=== PATIENT | female | born 1990 | race Caucasian/White ===

== ENCOUNTER → 2017-07-31 01:30 | Emergency (ER) | payer MEDICAID ==
[2017-07-31 03:10] LABS: Hematocrit 34 % (35-47); Hemoglobin 11.5 g/dl (12.0-16.0); Mean Corpuscular HGB Conc 34 g/dl (31-36); Mean Corpuscular Hemoglobin 28 pg (27-31); Mean Corpuscular Volume 84 fL (80-97); Mean Platelet Volume 8 um3 (7.4-10.4); Red Blood Count 4.06 10^6/ul (4.0-5.4); Red Cell Distribution Width 13 % (10.5-15); White Blood Count 15.5 10^3/ul (3.5-10.8)
[2017-07-31 03:27] LABS: ALT 8 U/L (7-52); AST 13 U/L (13-39); Albumin 4.1 g/dL (3.2-5.2); Alkaline Phosphatase 40 U/L (34-104); Anion Gap 7 mmol/L (2-11); BUN/Creatinine Ratio 16.7 (8-20); Blood Urea Nitrogen 8 mg/dL (6-24); C Reactive Protein < 1.00 mg/L (< 5.00); CO2 Carbon Dioxide 23 mmol/L (22-32); Calcium 8.9 mg/dL (8.6-10.3); Chloride 104 mmol/L (101-111); EGFR African American 201.1 (>60); EGFR Non-African American 156.3 (>60); Globulin 2.3 g/dL (2-4); Glucose 93 mg/dL (70-100); Potassium 3.6 mmol/L (3.5-5.0); Sodium 134 mmol/L (133-145); Total Protein 6.4 g/dL (6.4-8.9)
[2017-07-31 03:46] LABS: TSH (Thyroid Stimulating Horm) 1.43 mcIU/mL (0.34-5.60)
[2017-07-31] MEDS: NS 0.9% 1000 ML* 2,000 ML IV ONE ×2 (04:22→04:24)
[2017-07-31 06:05] LABS: Urine Bacteria Absent (Absent); Urine Bilirubin Negative (Negative); Urine Glucose Negative (Negative); Urine Nitrite Negative (Negative)
--- NOTE | 2017-07-31 07:49 | ED ---
Bernardo Aponte Abhishek, scribed for Johnathan Thurston MD on 07/31/17 at 0447 . Complex/Multi-Sys Presentation - HPI Summary HPI Summary: This patient is a 27 year old F presenting to [facility] with a c/o of vaginal bleeding since 24 of July and syncope since onset at 2245 at work. The vaginal bleeding is described as constant and worse since yesterday. The patient rates the pain 0/10 in severity. Symptoms aggravated by nothing. Symptoms alleviated by nothing. Patient reports chills since a couple days, chest congestion, cough productive (green), and diarrhea. Patient denies pain, and burning urination, abd cramping, and rashes. - History Of Current Complaint Chief Complaint: EDVaginalBleeding Time Seen by Provider: 07/31/17 03:30 Hx Obtained From: Patient Onset/Duration: Sudden Onset - Syncope at 2245, Still Present - Vaginal bleeding since July 24, Worse Since - Yesterday Timing: Constant - (Vaginal Bleeding) Severity Currently: None Aggravating Factor(s): nothing Alleviating Factor(s): nothing Associated Signs And Symptoms: Positive: Dizziness, Syncope, Cough - productive (green), Diarrhea, Other - Positive chest congestion, and chills. Negative pain , "burning" urination, abd cramping, and rashes. - Allergies/Home Medications Allergies/Adverse Reactions: Allergies Allergy/AdvReac Type Severity Reaction Status Date / Time No Known Allergies Allergy Verified 07/31/17 02:33 PMH/Surg Hx/FS Hx/Imm Hx Cardiovascular History: Denies: Hx Coronary Artery Disease Sensory History: Denies: Hx Deafness Opthamlomology History: Denies: Hx Legally Blind Infectious Disease History: No Infectious Disease History: Denies: Traveled Outside the [place] in Last 30 Days - Family History Known Family History: Negative: Seizure Disorder - Social History Alcohol Use: Occasionally Substance Use Type: Reports: None Smoking Status (MU): Light Every Day Tobacco Smoker Review of Systems Positive: Chills - couple days, Other - Negative generalized pain Eyes: Negative Positive: Cough - producitve (green), Other - chest congestion Positive: Diarrhea. Negative: Abdominal Pain Positive: other - Positive Vaginal bleedig. Negative burning urination Positive: Other Negative: Rash Positive: Syncope - 5 at work All Other Systems Reviewed And Are Negative: Yes Physical Exam - Summary Physical Exam Summary: General: mildly ill-appearing, no pain distress Skin: warm, color reflects adequate perfusion, dry Head: normal Eyes: EOMI, PATSY ENT: TM normal, posterior pharynx is benign, normal Neck: supple, nontender Respiratory:rhonchi, breath sounds present Cardiovascular: RRR Abdomen: soft, nontender Bowel: present Musculoskeletal: normal, strength/ROM intact Neurological: normal, sensory/motor intact, A&O x3 Psychological: affect/mood appropriate Triage Information Reviewed: Yes Vital Signs On Initial Exam: Initial Vitals Temp Pulse Resp BP Pulse Ox 98.5 F 98 14 114/79 99 07/31/17 01:32 07/31/17 01:32 07/31/17 01:32 07/31/17 01:32 07/31/17 01:32 Vital Signs Reviewed: Yes Diagnostics - Vital Signs Vital Signs Temp Pulse Resp BP Pulse Ox 07/31/17 03:30 90 114/66 97 07/31/17 03:00 89 125/79 98 07/31/17 02:33 85 98 07/31/17 02:31 114/70 07/31/17 01:32 98.5 F 98 14 114/79 99 - Laboratory Lab Results: Lab Results 07/31/17 07/31/17 07/31/17 Range/Units 02:55 02:55 02:55 WBC (3.5-10.8) 10^3/ul RBC (4.0-5.4) 10^6/ul Hgb (12.0-16.0) g/dl Hct (35-47) % MCV (80-97) fL MCH (27-31) pg MCHC (31-36) g/dl RDW (10.5-15) % Plt Count (150-450) 10^3/ul MPV (7.4-10.4) um3 Neut % (Auto) (38-83) % Lymph % (Auto) (25-47) % [place] % (Auto) (1-9) % Eos % (Auto) (0-6) % Baso % (Auto) (0-2) % Absolute Neuts (auto) (1.5-7.7) 10^3/ul Absolute Lymphs (auto) (1.0-4.8) 10^3/ul Absolute Monos (auto) (0-0.8) 10^3/ul Absolute Eos (auto) (0-0.6) 10^3/ul Absolute Basos (auto) (0-0.2) 10^3/ul Absolute Nucleated RBC 10^3/ul Nucleated RBC % INR (Anticoag Therapy) 1.11 (0.89-1.11) APTT 29.8 (26.0-36.3) seconds Sodium 134 (133-145) mmol/L Potassium 3.6 (3.5-5.0) mmol/L Chloride 104 (101-111) mmol/L Carbon Dioxide 23 (22-32) mmol/L Anion Gap 7 (2-11) mmol/L BUN 8 (6-24) mg/dL Creatinine 0.48 L (0.51-0.95) mg/dL Est GFR ( Amer) 201.1 (>60) Est GFR (Non-Af Amer) 156.3 (>60) BUN/Creatinine Ratio 16.7 (8-20) Glucose 93 (70-100) mg/dL Lactic Acid (0.5-2.0) mmol/L Calcium 8.9 (8.6-10.3) mg/dL Total Bilirubin 0.50 (0.2-1.0) mg/dL AST 13 (13-39) U/L ALT 8 (7-52) U/L Alkaline Phosphatase 40 (34-104) U/L C-Reactive Protein < 1.00 (< 5.00) mg/L Total Protein 6.4 (6.4-8.9) g/dL Albumin 4.1 (3.2-5.2) g/dL Globulin 2.3 (2-4) g/dL Albumin/Globulin Ratio 1.8 (1-3) TSH 1.43 (0.34-5.60) mcIU/mL Beta HCG, Quant 85094.00 mIU/mL Blood Type A Positive 07/31/17 07/31/17 Range/Units 02:55 02:55 WBC 15.5 H (3.5-10.8) 10^3/ul RBC 4.06 (4.0-5.4) 10^6/ul Hgb 11.5 L (12.0-16.0) g/dl Hct 34 L (35-47) % MCV 84 (80-97) fL MCH 28 (27-31) pg MCHC 34 (31-36) g/dl RDW 13 (10.5-15) % Plt Count 244 (150-450) 10^3/ul MPV 8 (7.4-10.4) um3 Neut % (Auto) 76.5 (38-83) % Lymph % (Auto) 16.2 L (25-47) % [place] % (Auto) 6.3 (1-9) % Eos % (Auto) 0.3 (0-6) % Baso % (Auto) 0.7 (0-2) % Absolute Neuts (auto) 11.8 H (1.5-7.7) 10^3/ul Absolute Lymphs (auto) 2.5 (1.0-4.8) 10^3/ul Absolute Monos (auto) 1.0 H (0-0.8) 10^3/ul Absolute Eos (auto) 0.1 (0-0.6) 10^3/ul Absolute Basos (auto) 0.1 (0-0.2) 10^3/ul Absolute Nucleated RBC 0 10^3/ul Nucleated RBC % 0 INR (Anticoag Therapy) (0.89-1.11) APTT (26.0-36.3) seconds Sodium (133-145) mmol/L Potassium (3.5-5.0) mmol/L Chloride (101-111) mmol/L Carbon Dioxide (22-32) mmol/L Anion Gap (2-11) mmol/L BUN (6-24) mg/dL Creatinine (0.51-0.95) mg/dL Est GFR ( Amer) (>60) Est GFR (Non-Af Amer) (>60) BUN/Creatinine Ratio (8-20) Glucose (70-100) mg/dL Lactic Acid 0.7 (0.5-2.0) mmol/L Calcium (8.6-10.3) mg/dL Total Bilirubin (0.2-1.0) mg/dL AST (13-39) U/L ALT (7-52) U/L Alkaline Phosphatase (34-104) U/L C-Reactive Protein (< 5.00) mg/L Total Protein (6.4-8.9) g/dL Albumin (3.2-5.2) g/dL Globulin (2-4) g/dL Albumin/Globulin Ratio (1-3) TSH (0.34-5.60) mcIU/mL Beta HCG, Quant mIU/mL Blood Type Result Diagrams: 07/31/17 02:55 07/31/17 02:55 Lab Statement: Any lab studies that have been ordered have been reviewed, and results considered in the medical decision making process. - Ultrasound No standard instances Ultrasound Interpretation Completed By: Radiologist - US: Pending radiologist interpretation, see Noteleaf for results. Complex Multi-Symp Course/Dx Course Of Treatment: DISPOSITION PENDING AT SHIFT CHANGE. NO CRITICAL CARE TIME. - Diagnoses Provider Diagnoses: Syncope, Miscarriage Discharge - Discharge Plan Condition: Stable Disposition: OTHER Discharge Disposition Comment: . Referrals: Non Staff,Doctor [Primary Care Provider] - The documentation as recorded by the Bernardo martin Abhishek accurately reflects the service I personally performed and the decisions made by me, Johnathan Thurston MD.
--- NOTE | 2017-07-31 08:11 | RAD ---
HISTORY: Date hCG of 67,000, vaginal bleeding, gestational age by dates of 3 weeks and 6 days COMPARISONS: None TECHNIQUE: Multiple transverse and longitudinal ultrasound images were obtained of the pelvis using grayscale, color Doppler, and spectral Doppler imaging using the endovaginal transducer. FINDINGS: UTERUS: The uterus measures 11.2 x 6.4 x 7.1 cm. The uterus is normal in shape, size, contour, and echotexture. ENDOMETRIUM: No intrauterine gestation is identified. The endometrial cavity is heterogeneous with ill-defined, mildly vascularized tissue. The anterior stripe measures up to 2.6 cm.. CUL-DE-SAC: There is no free fluid within the cul-de-sac. RIGHT OVARY: The right ovary measures 3.1 x 2.1 x 2.1 cm. Normal arterial and venous waveforms are identifiable within the ovary on spectral Doppler imaging. LEFT OVARY: The left ovary measures 1.9 x 1.4 x 1.8 cm. Normal arterial and venous waveforms are identifiable within the ovary on spectral Doppler imaging. BLADDER: The bladder is not well visualized. OTHER: None IMPRESSION: 1. NO INTRAUTERINE GESTATION IS IDENTIFIED. 2. THERE IS ILL-DEFINED MILDLY VASCULARIZED TISSUE WITHIN THE ENDOMETRIAL CAVITY, WITH THICKENING OF THE ENDOMETRIAL STRIPE. 3. THE DIFFERENTIAL INCLUDES MISSED VERSUS ECTOPIC . 4. THE VASCULARIZED TISSUE WITHIN THE ENDOMETRIAL CAVITY MAY REPRESENT RETAINED PRODUCTS OF CONCEPTION IN THE SETTING OF MISSED , OR GESTATIONAL TROPHOBLASTIC DISEASE. 5. RECOMMEND CORRELATION WITH SERIAL BETA-HCG LEVELS AND FOLLOW-UP IMAGING
[2017-07-31 09:38] VITALS: BP 108/55
--- NOTE | 2017-07-31 09:58 | ED ---
Carlito Aponte Alfonso, scribed for Richar Saavedra MD on 07/31/17 at 0746 . Progress - Progress Note Progress Note: This patient was signed out from Dr. Thurston, pending disposition, awaiting Transvaginal US. Transvaginal US reveals, per radiologist, thickening complex endometrial fluid likely reflecting spontaneous and retained debris / products of conceptions. In the absence of an intrauterine gestation, ectopic cannot be excluded; however, there is no adnexal mass or fluid collection. ED physician has reviewed this radiology report and agrees. Reevaluation at 0749: Lab and imaging results reviewed with the patient. She reports A0 with one pair of twins. She denies pain, nausea, vomiting at this time. Consulted Dr. Knott (OBGYN) at 0839 who recommends orthostatic vital signs, road test, and outpatient follow up. Reevaluation at 0907: The patient insists on going to [place] because her daughter has brain surgery at [address] Knott is comfortable discharging the patient. Dr. Knott does not think patient needs to sign AMA. Patient was instructed to not drive and present immediately to an emergency department if she were to develop dizziness, near syncope, pain, increased in vaginal bleeding , or any other symptoms. Otherwise she agrees to have close follow up with OBGYN. The patient agrees not to drive, and a friend present in the ED agrees to drive for her. The patients condition is stable and she will be discharged to home Diagnosis: syncope, vaginal bleeding and spontaneous vs retained debris / products of conception. 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 Patient understands and agrees. Course/Dx - Diagnoses Provider Diagnoses: Syncope, Vaginal bleeding, ectopic pregancy vs miscarriage - Provider Notifications Discussed Care Of Patient With: Marion Knott Time Discussed With Above Provider: 08:39 Instructed by Provider To: Other - Consulted Dr. Knott (OBGYN) at 0839 who recommends orthostatic vital signs, road test, and outpatient follow up. The documentation as recorded by the Carlito martin Alfonso accurately reflects the service I personally performed and the decisions made by Quentin garcía Walter, MD.
== END ==
LOC: ED 01:30
DX: N93.9 Abnormal uterine and vaginal bleeding, unspecified (principal); R55 Syncope and collapse; R42 Dizziness and giddiness; O03.9 Complete or unspecified spontaneous abortion without complication; R19.7 Diarrhea, unspecified; R05 Cough; F17.210 Nicotine dependence, cigarettes, uncomplicated
CPT/HCPCS: 36415; 76817; 80053; 81003; 81015; 83605; 84443; 84702; 85025; 85610; 85730; 86140; 86900; 86901; 87086; 99283